=== PATIENT | male | born 1990 | race Two or more races ===

== ENCOUNTER → 2023-11-05 | Outpatient (CLI) | payer OTHER ==
[2023-11-05 13:48] LABS: Basophils # (auto) 0.1 10 ^3/uL (0-0.2); Eosinophils # (auto) 0.1 10 ^3/uL (0-0.8); Eosinophils % (auto) 1.8 % (0.0-7.0); Hematocrit 44.6 % (41.0-53.0); Hemoglobin 14.9 g/dL (13.5-17.5); Lymphocytes % (auto) 34.8 % (10.0-50.0); Mean Corpuscular Hemoglobin 30.1 pg (28.0-32.0); Mean Corpuscular Hgb Conc. 33.5 g/dL (32.0-36.0); Mean Corpuscular Volume 89.9 fL (80.0-100.0); Monocytes # (auto) 0.6 10 ^3/uL (0-1.3); Monocytes % (auto) 10.5 % (0.0-12.0); Neutrophils # (auto) 2.9 10 ^3/uL (1.6-8.6); Neutrophils % (auto) 51.9 % (37.0-80.0); Red Blood Cells 4.96 10^6/uL (4.5-5.90); Red Cell Distribution Width 13.1 % (11.8-14.3); White Blood Cell 5.7 10^3/uL (4.4-10.8)
[2023-11-05 14:34] LABS: Alanine Aminotransferase 44 U/L (7-40); Albumin 4.3 g/dL (3.2-4.8); Alkaline Phosphatase 61 U/L (46-116); Anion Gap 4 (5-15); Aspartate Aminotransferase 18 U/L (13-40); BUN/Creatinine Ratio 13.6 (10.0-20.0); Blood Urea Nitrogen 12 mg/dL (9-23); Calcium 9.4 mg/dL (8.5-10.1); Carbon Dioxide 29 mmol/L (20-30); Chloride 108 mmol/L (98-107); Glucose 89 mg/dL (74-106); LDL Cholesterol 109 mg/dL (< 100); Sodium 141 mmol/L (136-145); Triglycerides 98 mg/dL (< 150)
[2023-11-05 14:35] LABS: Bilirubin, Total 0.7 mg/dL (0.2-1.0); Cholesterol 151 mg/dL (< 200); HDL Cholesterol 32 mg/dL (40-59); Total Protein 6.7 g/dL (5.7-8.2)
== END | disposition home or self-care (01) ==
LOC: LAB 13:21
PROVIDERS: ATTEND Internal Medicine
DX: K62.5 Hemorrhage of anus and rectum (principal); E55.9 Vitamin D deficiency, unspecified
CPT/HCPCS: 36415; 80053; 80061; 82306; 85025

== ENCOUNTER 2024-06-08 09:17 | Day surgery (SDC) | payer OTHER ==
[2024-06-04 13:15] LABS: Basophils # (auto) 0.1 10 ^3/uL (0-0.2); Basophils % (auto) 0.8 % (0.0-2.0); Eosinophils # (auto) 0.1 10 ^3/uL (0-0.8); Eosinophils % (auto) 1.4 % (0.0-7.0); Hematocrit 47.4 % (41.0-53.0); Hemoglobin 16.3 g/dL (13.5-17.5); Lymphocytes # (auto) 2.4 10 ^3/uL (0.4-5.4); Lymphocytes % (auto) 30.4 % (10.0-50.0); Mean Corpuscular Hemoglobin 30.6 pg (28.0-32.0); Mean Corpuscular Hgb Conc. 34.4 g/dL (32.0-36.0); Mean Corpuscular Volume 88.9 fL (80.0-100.0); Monocytes # (auto) 0.8 10 ^3/uL (0-1.3); Monocytes % (auto) 10.6 % (0.0-12.0); Neutrophils # (auto) 4.5 10 ^3/uL (1.6-8.6); Neutrophils % (auto) 56.8 % (37.0-80.0); Nucleated Red Blood Cells % 0.1 %; Platelet Count (auto) 188 10^3/uL (140-450); Red Blood Cells 5.33 10^6/uL (4.5-5.90); Red Cell Distribution Width 13.1 % (11.8-14.3); White Blood Cell 7.9 10^3/uL (4.4-10.8)
[2024-06-04 13:21] LABS: INR 1.06 (0.9-1.15); Partial Thromboplastin Time 26.5 SEC (24.5-34.5); Prothrombin Time 11.2 sec (9.3-11.8)
[2024-06-04 14:06] LABS: Alanine Aminotransferase 29 U/L (7-40); Albumin 4.4 g/dL (3.2-4.8); Alkaline Phosphatase 80 U/L (46-116); Anion Gap 9 (5-15); Aspartate Aminotransferase 12 U/L (13-40); BUN/Creatinine Ratio 17.5 (10.0-20.0); Blood Urea Nitrogen 18 mg/dL (9-23); Carbon Dioxide 25 mmol/L (20-31); Chloride 107 mmol/L (98-107); Glucose 85 mg/dL (74-106); Sodium 141 mmol/L (136-145)
[2024-06-04 14:07] LABS: Bilirubin, Total 0.4 mg/dL (0.2-1.0); Total Protein 7.1 g/dL (5.7-8.2)
[~2024-06-08] VITALS: Ht 177.8 cm; Wt 113.4 kg
[2024-06-08] MEDS ORDERED: SODIUM CHLORIDE LOCK 10 ML ONE (11:35)
[2024-06-08] MEDS ORDERED: diphenhdrAMINE HCL 50 MG/1 ML VL ONE (11:35)
[2024-06-08 11:42] VITALS: PULSE 73; RESP 17; O2SAT 98
[2024-06-08] MEDS: fentaNYL CITRATE 100 MCG/2 ML VL ONE (11:47)
[2024-06-08] MEDS: MIDAZOLAM HCL 5 MG/ML-1ML VIAL ONE (11:47)
[2024-06-08] MEDS: MIDAZOLAM HCL 2MG/2ML 2ml VIAL (1mg/ml) ONE (11:59)
[2024-06-08 12:09] VITALS: TEMP 97
--- NOTE | 2024-06-08 12:11 | DVHOP2 ---
Operative Report DATE OF PROCEDURE: 06/08/24 INDICATIONS FOR THE PROCEDURE: Rectal bleeding diarrhea PROCEDURE PERFORMED: Colonoscopy and biopsy POSTOPERATIVE DIAGNOSIS: Mild nonspecific sigmoiditis Internal hemorrhoids No active bleeding seen INFORMED CONSENT: The risks and benefits and alternatives were explained to the patient and informed consent was obtained. PROCEDURE IN DETAIL: The patient was kept NPO after midnight. Conscious sedation was accomplished by 5 mg Versed and 100 mg of fentanyl and 50 mg of Benadryl Olympus colonoscope was passed through the rectum all the way up to cecum and the terminal ileum The terminal ileum was normal. Cecum, ascending colon, hepatic flexure, transverse colon, splenic flexure, descending colon, and sigmoid colon were all visualized and the findings were as follows: Findings: There were few erythematous streaks in the midsigmoid suggestive of mild nonspecific sigmoiditis biopsies taken In the rectum there were internal hemorrhoids seen without any gross bleeding No polyps or masses No active bleeding No evidence of gross colitis ENDOSCOPIC IMPRESSION: Mild nonspecific sigmoiditis Internal hemorrhoids No active bleeding seen SUGGESTIONS: Await the biopsy results Symptomatic treatment and for the hemorrhoids and see the response In case symptoms persist may need further evaluation as necessary Thank you Dr. Lockett copy of dication to MD CORNELIO KWON MOOTHEDATH A MD Jun 08, 2024 12:11
[2024-06-08 12:45] VITALS: BP 118/60; PULSE 57; RESP 13; O2SAT 97
== END 2024-06-08 13:10 | disposition home or self-care (01) ==
LOC: GI 09:17
PROVIDERS: ATTEND Internal Medicine Gastroenterology
DX: K62.5 Hemorrhage of anus and rectum (principal); K52.9 Noninfective gastroenteritis and colitis, unspecified; K64.8 Other hemorrhoids; E66.9 Obesity, unspecified; Z98.890 Other specified postprocedural states
CPT/HCPCS: 36415; 45380; 80053; 85025; 85610; 85730; 88305; J1200; J2250; J3010; J7030; 99152

== ENCOUNTER → 2024-08-10 | Outpatient (CLI) | payer OTHER ==
[2024-08-10 10:21] LABS: Urine Bacteria None Seen /hpf (None Seen)
[2024-08-10 11:00] LABS: Basophils # (auto) 0.1 10 ^3/uL (0-0.2); Basophils % (auto) 0.8 % (0.0-2.0); Eosinophils # (auto) 0.1 10 ^3/uL (0-0.8); Eosinophils % (auto) 1.5 % (0.0-7.0); Hematocrit 46.5 % (41.0-53.0); Hemoglobin 15.7 g/dL (13.5-17.5); Lymphocytes % (auto) 30.4 % (10.0-50.0); Mean Corpuscular Hemoglobin 29.9 pg (28.0-32.0); Mean Corpuscular Hgb Conc. 33.7 g/dL (32.0-36.0); Mean Corpuscular Volume 88.8 fL (80.0-100.0); Monocytes # (auto) 0.6 10 ^3/uL (0-1.3); Monocytes % (auto) 9.3 % (0.0-12.0); Neutrophils # (auto) 3.7 10 ^3/uL (1.6-8.6); Nucleated Red Blood Cells % 0.1 %; Platelet Count (auto) 174 10^3/uL (140-450); Red Blood Cells 5.24 10^6/uL (4.5-5.90); Red Cell Distribution Width 13.5 % (11.8-14.3); White Blood Cell 6.5 10^3/uL (4.4-10.8)
[2024-08-10 11:37] LABS: Urine Blood Negative /uL (Negative); Urine Clarity Clear (Clear); Urine Color Light-Yellow (Yellow); Urine Protein, UAD Negative (Negative); Urine Specific Gravity 1.021 (1.001-1.035); Urine Squamous Epithelial Cell None Seen /hpf (<5); Urine Urobilinogen Normal (Negative); Urine WBC < 1 /HPF (0-3); Urine pH 6.5 (5.0-9.0)
[2024-08-10 11:59] LABS: Alanine Aminotransferase 30 U/L (7-40); Alkaline Phosphatase 68 U/L (46-116); Anion Gap 6 (5-15); Calcium 10.2 mg/dL (8.7-10.4); Carbon Dioxide 28 mmol/L (20-31); Chloride 107 mmol/L (98-107); Sodium 141 mmol/L (136-145)
[2024-08-10 12:00] LABS: BUN/Creatinine Ratio 12.1 (10.0-20.0); Blood Urea Nitrogen 12 mg/dL (9-23); Glucose 96 mg/dL (74-106); Triglycerides 149 mg/dL (< 150)
[2024-08-10 12:01] LABS: Albumin 4.6 g/dL (3.2-4.8)
[2024-08-10 12:02] LABS: Aspartate Aminotransferase 11 U/L (13-40); Bilirubin, Total 0.6 mg/dL (0.2-1.0); Cholesterol 200 mg/dL (< 200); HDL Cholesterol 46 mg/dL (40-59); LDL Cholesterol 142 mg/dL (< 100); Total Protein 6.8 g/dL (5.7-8.2)
[2024-08-10 12:06] LABS: Prostate Specific Antigen 0.96 ng/mL (0.0-4.0)
[2024-08-10 12:07] LABS: % Iron Saturation 35.2 % (20-55)
[2024-08-10 12:10] LABS: Folate (Folic Acid) 20.02 ng/mL (>5.38); T3 Total 1.27 ng/mL (0.60-1.81)
[2024-08-10 12:11] LABS: Free T3 3.77 pg/mL (2.3-4.2)
[2024-08-10 12:12] LABS: Free T4 (Free Thyroxine) 1.25 ng/dL (0.89-1.76)
== END | disposition home or self-care (01) ==
LOC: LAB 09:37
PROVIDERS: ATTEND Family Medicine
DX: T78.40XA Allergy, unspecified, initial encounter (principal); R62.50 Unspecified lack of expected normal physiological development in childhood; X58.XXXA Exposure to other specified factors, initial encounter
CPT/HCPCS: 36415; 80053; 80061; 81001; 82746; 83036; 83540; 83550; 84153; 84403; 84439; 84443; 84480; 84481; 85025